=== PATIENT | male | born 1955 | race Caucasian/White ===

== ENCOUNTER 2019-10-26 13:14 | Outpatient (CLI) | payer BC ==
--- NOTE | 2019-10-26 14:33 | CT ---
CT ABDOMEN AND PELVIS WITH IV CONTRAST 10/26/2019 CLINICAL INFORMATION: Severe abdominal pain in March 2019. Splenomegaly. COMPARISON: None. Technique: Multiple contiguous axial CT images are obtained through the abdomen and pelvis with IV contrast. Cor onal reformatted images are provided. FINDINGS: Lower Chest: Lung bases are clear. Vessels: Abdominal aorta is normal in caliber. Vascular calcifications are seen in the splenic artery . Abdomen: Portal vein:Patent Gallbladder: Surgically absent. Liver: within normal limits. Spleen: There is an ill-defined subtle low-attenuation mass seen involving the superior pole and body of the spleen with greatest measurement in in axial dimensions of 8.5 cm x 6.7 cm. The margins of this mass are not well delineated. A few centimeter lower attenuation areas are seen within this subt le mass. No significant enhancement is appreciated. Calcification is seen along the superior margin of the spleen, and the mass extends to to the superior margin of the spleen. Pancreas: within normal limits. Adrenals: within normal limits. Kidneys: within normal limits. Bowel: Colonic diverticulosis. Loops of small bowel are normal in caliber. Appendix: The appendix is visualized and normal in caliber. Peritoneum: No ascites or free air; no fluid collection. Mesentery and Retroperitoneum: No enlarged mesenteric or retroperitoneal lymph nodes. Abdominal Wall: within normal limits. Pelvis: Reproductive Organs: No pelvic masses. Pelvis within normal limits. Bladder: within normal limits. Bones: Multilevel degenerative changes are seen throughout the visualized thoracic spine as well as t he lumbar spine. There is irregularity of the endplates at the L2-3 level with subchondral cystic appearing changes and vacuum phenomenon. These findings are thought to most likely be related to bonny re endplate degenerative changes as opposed to an infectious process. IMPRESSION: Subtle hypodense mass in the superior pole and body of the spleen. This could potentially represent a hamartoma. However, other etiologies including neoplastic process cannot be entirely excluded. MRI of the abdomen with and without IV contrast versus [address] abdomen is recommended for further eval uation and characterization of this mass.
== END 2019-10-26 13:15 | disposition home or self-care (01) ==
LOC: SCSCT 13:14
PROVIDERS: ATTEND Specialist
DX: R16.1 Splenomegaly, not elsewhere classified (principal)
CPT/HCPCS: 74177

== ENCOUNTER 2019-11-28 09:31 | Outpatient (CLI) | payer BC ==
--- NOTE | 2019-11-28 12:22 | MRI ---
MRI ABDOMEN WITH AND WITHOUT IV CONTRAST: Date: 11/28/2019 HISTORY: Splenic mass and splenomegaly. FINDINGS: Correlation is made with the CT scan of 10/26/2019. The spleen is mildly enlarged, measuring 14.0 cm in length. There is a complex mass in the anterior a spect of the spleen measuring 8.6 x 7.8 x 6.8 cm. This is predominantly solid with a few small cystic areas. The liver, pancreas, adrenal glands, and right kidney are normal. There is a 17.0 mm cyst in the supe rior pole of the left kidney. No free fluid or lymphadenopathy is seen. The aorta is of normal caliber. There are degenerative patterson ges in the spine. Bone marrow signal is normal. IMPRESSION: 1. Mild splenomegaly. 2. Indeterminate splenic mass. Differential diagnosis includes hamartoma, lymphangioma, and littoral cell angioma. Odds of asymptomatic angiosarcoma are exceedingly small. RECOMMENDATION: A follow-up exam is recommended in 6 months to assess for growth. POS: [facility]
== END 2019-11-28 09:32 | disposition home or self-care (01) ==
LOC: TBSIIMAG 09:31
PROVIDERS: ATTEND Specialist
DX: R16.1 Splenomegaly, not elsewhere classified (principal)
CPT/HCPCS: 74183

== ENCOUNTER 2020-07-25 11:41 | Outpatient (CLI) | payer BC ==
[2020-07-25 12:48] LABS: #Basophils 0.1 10x3/uL (0.0-0.2); #Eosinphils 0.2 10x3/uL (0.0-0.5); #Monocytes 0.6 10x3/uL (0.0-1.1); %Basophils 1.3 % (0.0-2.0); %Eosinophils 3.2 % (0.0-6.0); %Lymphocytes 21.6 % (18.0-47.0); %Monocytes 7.5 % (0.0-10.0); Hemoglobin 13.4 g/dL (13.5-17.5); Mean Corpuscular HGB CONC 32.4 g/dL (32.0-36.0); Mean Corpuscular Hemoglobin 27.9 pg (27.0-33.0); Mean Platelet Volume 9.9 fl (7.4-10.4); Platelet Count 310 10x3/uL (150-450); RBC Distribution Width 15.1 % (11.5-14.5); White Blood Cell (WBC) Count 7.6 10x3/uL (3.5-10.5)
[2020-07-25 13:07] LABS: Anion Gap 13 mmol/L (10-20); BUN (Urea Nitrogen) 24 mg/dL (8.4-25.7); Calc. Creatinine Clearance 0 mL/min (70-130); Calcium 9.2 mg/dL (7.8-10.44); Carbon Dioxide 27 mmol/L (23-31); Chloride 106 mmol/L (98-107); Glucose 109 mg/dL (80-115); Potassium 4.8 mmol/L (3.5-5.1); Sodium 141 mmol/L (136-145)
[2020-07-26 02:35] LABS: SARS-CoV-2 PCR by NAA Not Detected (NotDetected)
== END 2020-07-25 11:42 | disposition home or self-care (01) ==
LOC: LABBT 11:41
PROVIDERS: ATTEND Specialist
DX: Z01.818 Encounter for other preprocedural examination (principal); Z01.812 Encounter for preprocedural laboratory examination; R16.1 Splenomegaly, not elsewhere classified; Z20.822 Contact with and (suspected) exposure to COVID-19
CPT/HCPCS: 80048; 85025; 87635; 93005; 93010; U0003; U0005

== ENCOUNTER 2020-07-25 11:45 | Inpatient (IN) | payer BC ==
[2020-09-02 11:27] VITALS: BMI 36.2
[2020-09-03] MEDS ORDERED: Acetaminophen 500 MG TAB ONE (11:22)
[2020-09-03] MEDS ORDERED: Ketorolac Tromethamine 30 MG/ML VIAL ONE (11:22)
[2020-09-03] MEDS ORDERED: Bupivacaine 0.25% HCL 30 ML VIAL ONE (12:53)
[2020-09-03] MEDS ORDERED: Lidocaine 1% w/Epinephrine 1:100K 20 ML VIAL ONE (12:53)
[2020-09-03] MEDS ORDERED: Fentanyl 100 MCG/2 ML VIAL ONE (13:00)
[2020-09-03] MEDS ORDERED: SUGAMMADEX SODIUM 200 MG/2 ML VIAL ONE (13:01)
[2020-09-03] MEDS ORDERED: Phenylephrine 10 MG/ML VIAL ONE (13:01)
[2020-09-03] MEDS ORDERED: Famotidine/PF 20 mg/2ml Vial ONE (13:01)
[2020-09-03] MEDS ORDERED: Dexamethasone 20 MG/5 ML VIAL ONE (13:20)
[2020-09-03] MEDS ORDERED: Glycopyrrolate 0.2 MG/ML 5 ML SYRINGE ONE (13:20)
[2020-09-03] MEDS ORDERED: Lidocaine 1% PF 5 ML VIAL ONE (13:20)
[2020-09-03] MEDS ORDERED: Ondansetron PF 4 MG/2 ML Vial ONE (13:20)
[2020-09-03] MEDS ORDERED: Rocuronium Bromide 10 MG/ML (10ML VIAL) ONE (13:20)
[2020-09-03] MEDS ORDERED: PHENYLEPHRINE-NS 100 MCG/ML 10 ML SYRINGE ONE (13:20)
[2020-09-03] MEDS ORDERED: PROPOFOL 200 MG/20 ML VIAL ONE (13:20)
[2020-09-03] MEDS ORDERED: HYDROmorphone 2 MG/ML VIAL SLOW IVP PRN (14:19)
[2020-09-03] MEDS ORDERED: Promethazine HCl 25 MG/ML VIAL SLOW IVP PRN (14:19)
[2020-09-03] MEDS ORDERED: Promethazine HCl 25 MG/ML VIAL IM PRN (14:19)
[2020-09-03] MEDS ORDERED: Meperidine HCl/PF 25 MG/ML VIAL SLOW IVP PRN (14:19)
[2020-09-03] MEDS ORDERED: Meperidine HCl/PF 25 MG/ML VIAL ONE (17:16)
[2020-09-03 18:02] LABS: Hemoglobin 13.7 g/dL (14.0-18.0); Mean Corpuscular HGB CONC 32.4 g/dL (32.0-36.0); Mean Corpuscular Hemoglobin 28.3 pg (27.0-31.0); Mean Corpuscular Volume 87.2 fL (78.0-98.0); Mean Platelet Volume 7.1 fL (7.4-10.4); Platelet Count 321 thou/uL (130-400); RBC Distribution Width 14.2 % (11.5-14.5); Red Blood Cell (RBC) Count 4.85 mill/uL (4.70-6.10)
[2020-09-03 18:29] LABS: Band 21 % (5-11); Lymphocytes 3 % (21-51); MDiff Complete? YES; Monocytes 1 % (0-10); Neutrophil 74 % (42-75); Platelet Morphology Comment Appears Adequate; Polychromasia SLIGHT = 2-3 cells (100X) (0-2/hpf); Reactive Lymphocytes 1 % (0-10)
[2020-09-03] MEDS ORDERED: Morphine 4 MG/ML VIAL ONE (19:10)
[2020-09-03] MEDS ORDERED: Sodium Chloride 0.9% 10 ML ONE (19:15)
[2020-09-03] MEDS ORDERED: Dextrose 50% Abboject 50 ML SYRINGE SLOW IVP PRN (20:37)
[2020-09-03] MEDS ORDERED: Morphine 2 MG/ML VIAL SLOW IVP PRN (20:37)
[2020-09-03] MEDS ORDERED: hydrALAZINE 20 MG/ML VIAL SLOW IVP PRN (20:37)
[2020-09-03] MEDS ORDERED: Dextrose 5% in Water 1,000 ML IV PRN (20:37)
[2020-09-03] MEDS ORDERED: Ondansetron PF 4 MG/2 ML Vial IVP PRN (20:37)
[2020-09-03] MEDS: HYDROcodone/Acetaminophen 10/325 mg Tablet PO PRN (20:57)
[2020-09-03] MEDS: D5 1/2 NS w/20 mEq KCL 1,000 ML IV SCH (20:58)
[2020-09-03] MEDS: Famotidine 20 MG TAB PO SCH (20:58)
[2020-09-03] MEDS: Famotidine/PF 20 mg/2ml Vial SLOW IVP SCH (20:59)
[2020-09-03] MEDS: Morphine 4 MG/ML VIAL SLOW IVP PRN (23:46)
[2020-09-04] MEDS: HYDROcodone/Acetaminophen 10/325 mg Tablet PO PRN ×5 (02:28→22:15)
[2020-09-04] MEDS: D5 1/2 NS w/20 mEq KCL 1,000 ML IV SCH ×2 (05:30→17:00)
[2020-09-04] MEDS: Morphine 4 MG/ML VIAL SLOW IVP PRN ×2 (05:37→07:51)
[2020-09-04 06:27] LABS: #Lymphocytes 0.8 thou/uL (1.20-3.40); #Monocytes 1.1 thou/uL (0.11-0.59); #Neutrophils 12.8 thou/uL (1.40-6.50); %Basophils 0.2 % (0.0-1.0); %Lymphocytes 5.7 % (21.0-51.0); %Monocytes 7.7 % (0.0-10.0); %Neutrophils 86.4 % (42.0-75.0); Mean Corpuscular HGB CONC 32.4 g/dL (32.0-36.0); Mean Corpuscular Hemoglobin 27.9 pg (27.0-31.0); Mean Corpuscular Volume 86.3 fL (78.0-98.0); Mean Platelet Volume 7.5 fL (7.4-10.4); Platelet Count 325 thou/uL (130-400); RBC Distribution Width 14.1 % (11.5-14.5); Red Blood Cell (RBC) Count 4.65 mill/uL (4.70-6.10); White Blood Cell (WBC) Count 14.8 thou/uL (4.8-10.8)
[2020-09-04 06:46] LABS: Anion Gap 13 mmol/L (10-20); BUN (Urea Nitrogen) 17 mg/dL (8.4-25.7); Calc. Creatinine Clearance 109 mL/min (70-130); Calcium 8.7 mg/dL (7.8-10.44); Carbon Dioxide 21 mmol/L (23-31); Chloride 107 mmol/L (98-107); Glucose 144 mg/dL (80-115); Potassium 4.8 mmol/L (3.5-5.1); Sodium 136 mmol/L (136-145)
[2020-09-04] MEDS: Enoxaparin Sodium 40 MG/0.4 ML SYRINGE SC SCH (07:50)
[2020-09-04] MEDS: Famotidine 20 MG TAB PO SCH (07:51)
[2020-09-04] MEDS: Famotidine/PF 20 mg/2ml Vial SLOW IVP SCH (10:27)
[2020-09-04] MEDS ORDERED: Azelastine 137 MCG/Spray 30 ML NS PRN (16:20)
[2020-09-04] MEDS ORDERED: D5 1/2 NS w/20 mEq KCL 1,000 ML IV SCH (20:00)
[2020-09-05] MEDS: HYDROcodone/Acetaminophen 10/325 mg Tablet PO PRN ×3 (03:08→11:17)
[2020-09-05] MEDS ORDERED: Levothyroxine Sodium 25 MCG TAB PO SCH (06:00)
[2020-09-05 08:07] LABS: #Basophils 0.1 thou/uL (0.0-0.2); #Eosinphils 0.4 thou/uL (0.0-0.7); #Lymphocytes 2.5 thou/uL (1.20-3.40); #Monocytes 1.7 thou/uL (0.11-0.59); #Neutrophils 7.7 thou/uL (1.40-6.50); %Basophils 0.9 % (0.0-1.0); %Lymphocytes 20.5 % (21.0-51.0); %Monocytes 13.6 % (0.0-10.0); Mean Corpuscular HGB CONC 31.4 g/dL (32.0-36.0); Mean Corpuscular Hemoglobin 27.6 pg (27.0-31.0); Mean Platelet Volume 7.7 fL (7.4-10.4); Platelet Count 339 thou/uL (130-400); RBC Distribution Width 14.4 % (11.5-14.5); Red Blood Cell (RBC) Count 4.34 mill/uL (4.70-6.10); White Blood Cell (WBC) Count 12.3 thou/uL (4.8-10.8)
[2020-09-05] MEDS: Enoxaparin Sodium 40 MG/0.4 ML SYRINGE SC SCH (08:24)
[2020-09-05] MEDS ORDERED: Tamsulosin HCl 0.4 MG CAP PO SCH (09:00)
[2020-09-05] MEDS ORDERED: Lisinopril 20 MG TAB PO SCH (09:00)
[2020-09-05] MEDS ORDERED: Loratadine/Pseudoephedrine 10/240 mg Tablet PO SCH (09:00)
[2020-09-05] MEDS ORDERED: Atorvastatin Calcium 20 MG TAB PO SCH (09:00)
[2020-09-05 14:31] VITALS: BP 152/90; TEMP 97.4
== END 2020-09-05 13:36 | disposition home or self-care (01) | DRG 828 ==
LOC: EDSTATUS 08-13 11:45 → SURG A 09-03 10:44 → T4-B 09-03 20:38
PROVIDERS: ADMIT Specialist; ATTEND Specialist
PROC: 07BP4ZZ Excision of Spleen, Percutaneous Endoscopic Approach (ICD-10-PCS; principal; 2020-09-03)
DX: Q85.9 Phakomatosis, unspecified (principal); F41.9 Anxiety disorder, unspecified; I10 Essential (primary) hypertension; Z20.822 Contact with and (suspected) exposure to COVID-19; Z90.49 Acquired absence of other specified parts of digestive tract; Z90.89 Acquired absence of other organs
CPT/HCPCS: 36415; 80048; 82150; 85025; 86850; 86900; 86901; 88305; 88313; J0360; J0690; J1100; J1650; J1885; J2175; J2270; J2370; J2405; J2704; J3010; J3480; S0020; S0028

== ENCOUNTER 2020-08-09 12:33 | Outpatient (CLI) | payer BC ==
[2020-08-09 23:52] LABS: SARS-CoV-2 PCR by NAA Not Detected (NotDetected)
== END 2020-08-09 12:34 | disposition home or self-care (01) ==
LOC: LABBT 12:33
PROVIDERS: ATTEND Specialist
DX: Z01.818 Encounter for other preprocedural examination (principal); R94.39 Abnormal result of other cardiovascular function study; Z20.822 Contact with and (suspected) exposure to COVID-19
CPT/HCPCS: 87635; U0003; U0005

== ENCOUNTER 2020-08-13 06:08 | Day surgery (SDC) | payer BC ==
[2020-08-12 12:44] VITALS: BMI 36.2
[2020-08-13] MEDS ORDERED: Lidocaine 1% (PF) 30 ML VIAL ONE ×2 (06:38→06:41)
[2020-08-13] MEDS ORDERED: Fentanyl 100 MCG/2 ML VIAL ONE (07:26)
[2020-08-13] MEDS ORDERED: Midazolam HCl 2 mg/2 ml Vial ONE (07:27)
[2020-08-13] MEDS ORDERED: Iopamidol 370 76% 100 ML VIAL ONE (13:59)
== END 2020-08-13 13:51 | disposition home or self-care (01) ==
LOC: CCL 06:08
PROVIDERS: ATTEND Internal Medicine Cardiovascular Disease
PROC: B2111ZZ Fluoroscopy of Multiple Coronary Arteries using Low Osmolar Contrast (ICD-10-PCS; principal; 2020-08-13)
PROC: 4A023N7 Measurement of Cardiac Sampling and Pressure, Left Heart, Percutaneous Approach (ICD-10-PCS; principal; 2020-08-13)
DX: I25.10 Atherosclerotic heart disease of native coronary artery without angina pectoris (principal); I10 Essential (primary) hypertension; I49.3 Ventricular premature depolarization; Z79.899 Other long term (current) drug therapy
CPT/HCPCS: 76942; 93458; 99152; 99153; J2001; J2250; J3010; Q9967

== ENCOUNTER 2020-08-29 11:38 | Outpatient (CLI) | payer BC ==
[2020-08-29 14:36] LABS: #Basophils 0.1 10x3/uL (0.0-0.2); #Eosinphils 0.3 10x3/uL (0.0-0.5); #Monocytes 0.7 10x3/uL (0.0-1.1); %Eosinophils 3.5 % (0.0-6.0); %Lymphocytes 24.4 % (18.0-47.0); %Monocytes 8.6 % (0.0-10.0); %Neutrophils 62.1 % (40.0-75.0); Hemoglobin 12.8 g/dL (13.5-17.5); Mean Corpuscular HGB CONC 31.6 g/dL (32.0-36.0); Mean Corpuscular Hemoglobin 27.2 pg (27.0-33.0); Mean Corpuscular Volume 86.2 fl (81.2-95.1); Mean Platelet Volume 10.1 fl (7.4-10.4); Platelet Count 302 10x3/uL (150-450); RBC Distribution Width 15.4 % (11.5-14.5)
[2020-08-29 15:24] LABS: Anion Gap 16 mmol/L (10-20); BUN (Urea Nitrogen) 29 mg/dL (8.4-25.7); Calc. Creatinine Clearance 0 mL/min (70-130); Calcium 9.3 mg/dL (7.8-10.44); Carbon Dioxide 22 mmol/L (23-31); Chloride 106 mmol/L (98-107); Glucose 76 mg/dL (80-115); Sodium 139 mmol/L (136-145)
[2020-08-29 21:52] LABS: SARS-CoV-2 PCR by NAA Not Detected (NotDetected)
== END 2020-08-29 11:39 | disposition home or self-care (01) ==
LOC: LABBT 11:38
PROVIDERS: ATTEND Specialist
DX: Z01.818 Encounter for other preprocedural examination (principal); D73.89 Other diseases of spleen; Z20.822 Contact with and (suspected) exposure to COVID-19
CPT/HCPCS: 80048; 85025; 87635; 93005; 93010; U0003; U0005

== ENCOUNTER 2022-06-26 12:18 | Outpatient (CLI) | payer BC | END 2022-06-26 12:19 | disposition home or self-care (01) | LOC: SCSRAD 12:18 | PROVIDERS: ATTEND Family Medicine Sports Medicine | DX: M54.50 Low back pain, unspecified (principal); M47.816 Spondylosis without myelopathy or radiculopathy, lumbar region; M47.817 Spondylosis without myelopathy or radiculopathy, lumbosacral region | CPT/HCPCS: 72100 ==

== ENCOUNTER 2022-07-13 13:25 | Emergency (ER) | payer BC ==
[2022-07-13 14:02] LABS: Bilirubin Negative (Negative); Blood, Urine Negative (Negative); Clarity Clear (Clear); Glucose, Urine (Dipstick) Normal (Negative); Ketone, Urine Negative (Negative); Leukocyte Negative Leu/uL (Negative); Nitrite Negative (Negative); Protein, Urine (Dipstick) 10 mg/dL (Neg-Trace); Specific Gravity, Urine 1.028 (1.002-1.036); Urobilinogen Normal mg/dL (Less than 2); pH, Urine 6.5 (5.0-9.0)
[2022-07-13 14:44] LABS: #Basophils 0.2 thou/uL (0.0-0.2); #Eosinphils 0.6 thou/uL (0.0-0.7); #Lymphocytes 3.5 thou/uL (1.20-3.40); #Monocytes 1.2 thou/uL (0.11-0.59); #Neutrophils 6.6 thou/uL (1.40-6.50); %Basophils 1.4 % (0.0-1.0); %Eosinophils 4.7 % (0.0-10.0); %Lymphocytes 29.1 % (21.0-51.0); %Monocytes 10.3 % (0.0-10.0); %Neutrophils 54.6 % (42.0-75.0); Hemoglobin 14.4 g/dL (14.0-18.0); Mean Corpuscular HGB CONC 34.2 g/dL (32.0-36.0); Mean Corpuscular Hemoglobin 31.1 pg (27.0-31.0); Mean Corpuscular Volume 90.8 fl (78.0-98.0); Platelet Count 524 10x3/uL (130-400); RBC Distribution Width 13.1 % (11.5-14.5); Red Blood Cell (RBC) Count 4.63 mill/uL (4.70-6.10)
[2022-07-13 15:05] LABS: ALT (SGPT) 25 U/L (8-55); AST (SGOT) 29 U/L (5-34); Albumin 4.2 g/dL (3.4-4.8); Alkaline Phosphatase 126 U/L (40-110); Anion Gap 17 mmol/L (10-20); BUN (Urea Nitrogen) 21 mg/dL (8.4-25.7); Bilirubin, Total 0.5 mg/dL (0.2-1.2); Calc. Creatinine Clearance 0 mL/min (70-130); Calcium 9.3 mg/dL (7.8-10.44); Carbon Dioxide 21 mmol/L (23-31); Chloride 105 mmol/L (98-107); Estimated GFR 70; Globulin 3.7 g/dL (2.4-3.5); Glucose 97 mg/dL (80-115); Potassium 4.6 mmol/L (3.5-5.1); Protein, Total 7.9 g/dL (5.8-8.1); Sodium 138 mmol/L (136-145)
[2022-07-13] MEDS ORDERED: Ketorolac Tromethamine 30 MG/ML VIAL ONE (15:51)
== END 2022-07-13 16:41 | disposition home or self-care (01) ==
LOC: ERS 13:25
DX: M47.816 Spondylosis without myelopathy or radiculopathy, lumbar region (principal); D72.829 Elevated white blood cell count, unspecified; I10 Essential (primary) hypertension; R79.89 Other specified abnormal findings of blood chemistry; Z79.899 Other long term (current) drug therapy
CPT/HCPCS: 36415; 74176; 80053; 81003; 85025; 96374; J1885

== ENCOUNTER 2023-04-06 14:21 | Outpatient (CLI) | payer BC | END 2023-04-06 14:22 | disposition home or self-care (01) | LOC: SCSMRI 14:21 | PROVIDERS: ATTEND Family Medicine Sports Medicine | DX: M54.41 Lumbago with sciatica, right side (principal); M47.816 Spondylosis without myelopathy or radiculopathy, lumbar region; M48.061 Spinal stenosis, lumbar region without neurogenic claudication; M48.07 Spinal stenosis, lumbosacral region | CPT/HCPCS: 72148 ==

== ENCOUNTER 2023-05-28 18:11 | Inpatient (IN) | payer BC, MEDICARE ==
[2023-05-28] MEDS ORDERED: Ondansetron PF 4 MG/2 ML Vial IVP PRN ×2 (23:53→23:55)
[2023-05-28] MEDS ORDERED: Acetaminophen 325 MG TAB PO PRN (23:53)
[2023-05-28] MEDS ORDERED: Ondansetron ODT 4 MG TAB PO PRN (23:55)
[2023-05-28] MEDS ORDERED: Acetaminophen 650 MG Suppository PR PRN (23:55)
[2023-05-29] MEDS ORDERED: NOREPINEPHRINE 8 MG/250 ML-D5W 250 ML IVPB SCH (00:15)
[2023-05-29] MEDS ORDERED: Vancomycin 1 GM in Premix 1 BAG IVPB SCH (00:45)
[2023-05-29] MEDS: Lactated Ringer's 1,000 ML IV SCH ×4 (00:51→18:53)
[2023-05-29] MEDS: Cefepime 1 GM in Sodium Chloride 0.9% 100 ML IVPB SCH ×2 (02:02→13:04)
[2023-05-29 04:19] LABS: #Basophils 0.1 thou/uL (0.0-0.2); #Eosinphils 0.1 thou/uL (0.0-0.7); #Neutrophils 19.3 thou/uL (1.40-6.50); %Basophils 0.3 % (0.0-1.0); %Eosinophils 0.4 % (0.0-10.0); %Lymphocytes 8.4 % (21.0-51.0); %Monocytes 8.4 % (0.0-10.0); %Neutrophils 81.6 % (42.0-75.0); Hematocrit 31.8 % (42.0-52.0); Hemoglobin 10.6 g/dL (14.0-18.0); Mean Corpuscular HGB CONC 33.3 g/dL (32.0-36.0); Mean Corpuscular Hemoglobin 29.9 pg (27.0-31.0); Mean Corpuscular Volume 89.6 fl (78.0-98.0); Mean Platelet Volume 10.3 fL (7.4-10.4); Platelet Count 323 10x3/uL (130-400); RBC Distribution Width 18.6 % (11.5-14.5); Red Blood Cell (RBC) Count 3.55 mill/uL (4.70-6.10); White Blood Cell (WBC) Count 23.7 10x3/uL (4.8-10.8)
[2023-05-29] MEDS: Acetaminophen 325 MG TAB PO PRN ×2 (05:39→15:37)
[2023-05-29] MEDS: Heparin 5,000 UNITS/ML VIAL SC SCH ×2 (08:14→20:39)
[2023-05-29 08:37] LABS: ALT (SGPT) 31 U/L (8-55); AST (SGOT) 33 U/L (5-34); Albumin 3.2 g/dL (3.4-4.8); Alkaline Phosphatase 98 U/L (40-110); Anion Gap 14 mmol/L (10-20); BUN (Urea Nitrogen) 30 mg/dL (8.4-25.7); Bilirubin, Total 0.6 mg/dL (0.2-1.2); Calc. Creatinine Clearance 89 mL/min (70-130); Calcium 8.2 mg/dL (7.8-10.44); Carbon Dioxide 21 mmol/L (23-31); Chloride 105 mmol/L (98-107); Estimated GFR 50; Globulin 2.5 g/dL (2.4-3.5); Glucose 155 mg/dL (80-115); Potassium 4.7 mmol/L (3.5-5.1); Protein, Total 5.7 g/dL (5.8-8.1); Sodium 135 mmol/L (136-145)
[2023-05-29] MEDS ORDERED: Gabapentin 300 MG CAP PO SCH ×2 (09:00→13:00)
[2023-05-29] MEDS ORDERED: Enoxaparin 40 MG (0.4 mL) SYRINGE SC SCH (09:00)
[2023-05-29] MEDS ORDERED: Loperamide HCl 2 MG CAP PO SCH (20:15)
[2023-05-29] MEDS: Gabapentin 300 MG CAP PO SCH (20:37)
[2023-05-29] MEDS: clonazePAM 0.5 MG TAB PO SCH (21:27)
[2023-05-30] MEDS: Vancomycin (BATCH) 1.5 GM in Premix 1 BAG IVPB SCH (00:38)
[2023-05-30] MEDS: Acetaminophen 325 MG TAB PO PRN ×2 (00:40→21:32)
[2023-05-30] MEDS: Cefepime 1 GM in Sodium Chloride 0.9% 100 ML IVPB SCH (02:48)
[2023-05-30] MEDS: Lactated Ringer's 1,000 ML IV SCH ×2 (02:49→21:33)
[2023-05-30 07:25] LABS: Hematocrit 31.2 % (42.0-52.0); Hemoglobin 10.3 g/dL (14.0-18.0); Manual Diff?? YES; Mean Corpuscular Hemoglobin 29.9 pg (27.0-31.0); Mean Corpuscular Volume 90.7 fl (78.0-98.0); Mean Platelet Volume 9.9 fL (7.4-10.4); Platelet Count 275 10x3/uL (130-400); Red Blood Cell (RBC) Count 3.44 mill/uL (4.70-6.10); White Blood Cell (WBC) Count 13.5 10x3/uL (4.8-10.8)
[2023-05-30 07:44] LABS: Delete Auto Diff?? YES
[2023-05-30 07:54] LABS: Anion Gap 11 mmol/L (10-20); BUN (Urea Nitrogen) 16 mg/dL (8.4-25.7); Calc. Creatinine Clearance 123 mL/min (70-130); Calcium 8.5 mg/dL (7.8-10.44); Carbon Dioxide 24 mmol/L (23-31); Chloride 105 mmol/L (98-107); Estimated GFR 74; Glucose 136 mg/dL (80-115); Potassium 4.4 mmol/L (3.5-5.1); Sodium 136 mmol/L (136-145)
[2023-05-30 09:08] LABS: Anisocytosis SLIGHT = 6-15 cells HPF (0-5); Burr Cells SLIGHT = 2-5 cells HPF (0-1); CellaVision Operator ID LAB.NR; Hypochromia SLIGHT = 6-15 cells HPF (0-5); Lymphocytes 9 % (21-51); Macrocytosis SLIGHT = 6-15 cells HPF (0-5); Monocytes 13 % (0-10); Neutrophil 78 % (42-75); Platelet Adequacy Comment Platelets Normal; Polychromasia SLIGHT = 2-3 cells HPF (0-2); Total Cell Count 101
[2023-05-30] MEDS: clonazePAM 0.5 MG TAB PO SCH (21:32)
[2023-05-30] MEDS: Heparin 5,000 UNITS/ML VIAL SC SCH ×2 (21:33→22:34)
[2023-05-30] MEDS: Gabapentin 300 MG CAP PO SCH ×2 (22:33→22:34)
[2023-05-30] MEDS: Cefepime 2 GM in Sodium Chloride 0.9% 100 ML IVPB SCH (22:34)
[2023-05-31 00:39] LABS: Vancomycin, Trough 5.7 ug/mL
[2023-05-31] MEDS: Vancomycin (BATCH) 1.25 GM in Premix 1 BAG IVPB SCH ×2 (00:56→13:45)
[2023-05-31] MEDS: traMADol HCl 50 MG TAB PO PRN ×4 (00:57→22:36)
[2023-05-31] MEDS: Metoprolol Tartrate 5 MG (5 mL) VIAL IVP SCH ×2 (00:57→02:21)
[2023-05-31 01:02] LABS: Magnesium 1.8 mg/dL (1.6-2.6)
[2023-05-31] MEDS ORDERED: Magnesium 2 GM/50 ML(in water) 2 GM in Premix 1 BAG IVPB SCH (02:00)
[2023-05-31] MEDS ORDERED: Enoxaparin 100 MG (1 mL) SYRINGE SC SCH (02:15)
[2023-05-31] MEDS ORDERED: Enoxaparin 30 MG (0.3 mL) SYRINGE SC SCH (02:15)
[2023-05-31] MEDS: Metoprolol Tartrate 5 MG (5 mL) VIAL IVP PRN ×2 (02:21→22:12)
[2023-05-31] MEDS: Cefepime 2 GM in Sodium Chloride 0.9% 100 ML IVPB SCH ×2 (03:46→16:13)
[2023-05-31] MEDS ORDERED: dilTIAZem 125 MG in Sodium Chloride 0.9% 100 ML IVPB SCH (04:00)
[2023-05-31] MEDS ORDERED: Sodium Chloride 0.9% 500 ML IV SCH (04:30)
[2023-05-31 04:49] LABS: #Basophils 0.1 thou/uL (0.0-0.2); #Eosinphils 0.2 thou/uL (0.0-0.7); #Monocytes 1.6 thou/uL (0.11-0.59); #Neutrophils 6.6 thou/uL (1.40-6.50); %Basophils 0.7 % (0.0-1.0); %Eosinophils 2.2 % (0.0-10.0); %Lymphocytes 20.1 % (21.0-51.0); %Monocytes 14.5 % (0.0-10.0); %Neutrophils 61.8 % (42.0-75.0); Hematocrit 32.2 % (42.0-52.0); Hemoglobin 10.5 g/dL (14.0-18.0); Mean Corpuscular HGB CONC 32.6 g/dL (32.0-36.0); Mean Corpuscular Hemoglobin 28.8 pg (27.0-31.0); Mean Corpuscular Volume 88.5 fl (78.0-98.0); Mean Platelet Volume 10.8 fL (7.4-10.4); Platelet Count 299 10x3/uL (130-400); RBC Distribution Width 18.9 % (11.5-14.5); Red Blood Cell (RBC) Count 3.64 mill/uL (4.70-6.10); White Blood Cell (WBC) Count 10.7 10x3/uL (4.8-10.8)
[2023-05-31 05:04] LABS: Anion Gap 10 mmol/L (10-20); BUN (Urea Nitrogen) 16 mg/dL (8.4-25.7); Calc. Creatinine Clearance 145 mL/min (70-130); Carbon Dioxide 21 mmol/L (23-31); Chloride 105 mmol/L (98-107); Estimated GFR 90; Glucose 156 mg/dL (80-115); Potassium 3.9 mmol/L (3.5-5.1); Sodium 132 mmol/L (136-145)
[2023-05-31] MEDS: Lactated Ringer's 1,000 ML IV SCH (07:00)
[2023-05-31] MEDS: Vancomycin (BATCH) 1.5 GM in Premix 1 BAG IVPB SCH (07:38)
[2023-05-31] MEDS: Heparin 5,000 UNITS/ML VIAL SC SCH (07:39)
[2023-05-31] MEDS ORDERED: Flecainide 50 MG TAB PO SCH (09:30)
[2023-05-31] MEDS ORDERED: Gabapentin 300 MG CAP PO SCH (09:45)
[2023-05-31] MEDS: Gabapentin 300 MG CAP PO SCH ×3 (13:45→20:31)
[2023-05-31] MEDS ORDERED: Communication Order-Pharmacy FS ONE (17:00)
[2023-05-31 18:33] LABS: Hematocrit 30.6 % (42.0-52.0); Hemoglobin 10.3 g/dL (14.0-18.0); Platelet Count 325 10x3/uL (130-400)
[2023-05-31] MEDS: Enoxaparin 100 MG (1 mL) SYRINGE SC SCH (20:32)
[2023-05-31] MEDS: Enoxaparin 30 MG (0.3 mL) SYRINGE SC SCH (20:32)
[2023-05-31] MEDS: Flecainide 50 MG TAB PO SCH (20:33)
[2023-05-31] MEDS: clonazePAM 0.5 MG TAB PO SCH (22:12)
[2023-06-01] MEDS: Vancomycin (BATCH) 1.25 GM in Premix 1 BAG IVPB SCH ×2 (01:21→17:43)
[2023-06-01] MEDS: Lactated Ringer's 1,000 ML IV SCH ×2 (01:29→12:21)
[2023-06-01] MEDS: traMADol HCl 50 MG TAB PO PRN ×4 (05:02→22:45)
[2023-06-01 06:19] LABS: #Basophils 0.1 thou/uL (0.0-0.2); #Eosinphils 0.4 thou/uL (0.0-0.7); #Neutrophils 5.8 thou/uL (1.40-6.50); %Eosinophils 3.3 % (0.0-10.0); %Lymphocytes 27.3 % (21.0-51.0); %Monocytes 17.3 % (0.0-10.0); %Neutrophils 50.1 % (42.0-75.0); Hematocrit 30.6 % (42.0-52.0); Hemoglobin 10.1 g/dL (14.0-18.0); Mean Corpuscular Hemoglobin 29.7 pg (27.0-31.0); Platelet Count 347 10x3/uL (130-400); RBC Distribution Width 19.1 % (11.5-14.5); White Blood Cell (WBC) Count 11.5 10x3/uL (4.8-10.8)
[2023-06-01 06:46] LABS: Anion Gap 13 mmol/L (10-20); BUN (Urea Nitrogen) 14 mg/dL (8.4-25.7); Calc. Creatinine Clearance 155 mL/min (70-130); Calcium 8.3 mg/dL (7.8-10.44); Carbon Dioxide 22 mmol/L (23-31); Chloride 104 mmol/L (98-107); Estimated GFR 95; Glucose 138 mg/dL (80-115); Potassium 4.4 mmol/L (3.5-5.1); Sodium 135 mmol/L (136-145)
[2023-06-01] MEDS ORDERED: FLU VACC QS2023(65UP)/MF59C/PF 60 MCG/0.5 ML SYRINGE IM ONE (09:00)
[2023-06-01] MEDS: Acetaminophen 325 MG TAB PO PRN (09:02)
[2023-06-01] MEDS: Flecainide 50 MG TAB PO SCH (09:02)
[2023-06-01] MEDS: Gabapentin 300 MG CAP PO SCH ×3 (09:02→20:48)
[2023-06-01] MEDS: Enoxaparin 100 MG (1 mL) SYRINGE SC SCH ×2 (09:03→20:48)
[2023-06-01] MEDS: Enoxaparin 30 MG (0.3 mL) SYRINGE SC SCH ×2 (09:03→20:47)
[2023-06-01] MEDS ORDERED: dilTIAZem 25 MG/5 ML VIAL SLOW IVP SCH (11:30)
[2023-06-01] MEDS: dilTIAZem 125 MG in Sodium Chloride 0.9% 100 ML IVPB SCH ×2 (12:41→21:40)
[2023-06-01] MEDS ORDERED: Levothyroxine Sodium 25 MCG TAB PO SCH (13:00)
[2023-06-01] MEDS: Amiodarone 200 MG TAB PO SCH ×2 (14:48→20:48)
[2023-06-01] MEDS: clonazePAM 0.5 MG TAB PO SCH (20:48)
[2023-06-02] MEDS: Vancomycin (BATCH) 1.25 GM in Premix 1 BAG IVPB SCH ×2 (01:35→12:43)
[2023-06-02] MEDS: traMADol HCl 50 MG TAB PO PRN ×3 (04:45→19:35)
[2023-06-02 05:57] LABS: #Basophils 0.1 thou/uL (0.0-0.2); #Eosinphils 0.4 thou/uL (0.0-0.7); #Monocytes 1.5 thou/uL (0.11-0.59); #Neutrophils 6.7 thou/uL (1.40-6.50); %Basophils 1.1 % (0.0-1.0); %Eosinophils 3.6 % (0.0-10.0); %Lymphocytes 24.1 % (21.0-51.0); %Monocytes 12.4 % (0.0-10.0); %Neutrophils 56.7 % (42.0-75.0); Hematocrit 32.3 % (42.0-52.0); Hemoglobin 10.5 g/dL (14.0-18.0); Mean Corpuscular HGB CONC 32.5 g/dL (32.0-36.0); Mean Corpuscular Hemoglobin 29.7 pg (27.0-31.0); Mean Corpuscular Volume 91.2 fl (78.0-98.0); Mean Platelet Volume 11.1 fL (7.4-10.4); Platelet Count 398 10x3/uL (130-400); RBC Distribution Width 19.1 % (11.5-14.5); Red Blood Cell (RBC) Count 3.54 mill/uL (4.70-6.10); White Blood Cell (WBC) Count 11.8 10x3/uL (4.8-10.8)
[2023-06-02 06:23] LABS: Anion Gap 12 mmol/L (10-20); BUN (Urea Nitrogen) 13 mg/dL (8.4-25.7); Calc. Creatinine Clearance 152 mL/min (70-130); Calcium 8.4 mg/dL (7.8-10.44); Carbon Dioxide 23 mmol/L (23-31); Chloride 105 mmol/L (98-107); Estimated GFR 94; Glucose 173 mg/dL (80-115); Potassium 4.3 mmol/L (3.5-5.1); Sodium 136 mmol/L (136-145)
[2023-06-02] MEDS: Amiodarone 200 MG TAB PO SCH ×3 (08:25→19:36)
[2023-06-02] MEDS: Enoxaparin 30 MG (0.3 mL) SYRINGE SC SCH (08:25)
[2023-06-02] MEDS: Levothyroxine Sodium 25 MCG TAB PO SCH (08:25)
[2023-06-02] MEDS: Enoxaparin 100 MG (1 mL) SYRINGE SC SCH (08:25)
[2023-06-02] MEDS: Gabapentin 300 MG CAP PO SCH ×3 (08:25→19:34)
[2023-06-02] MEDS ORDERED: Amiodarone 200 MG TAB PO SCH (10:18)
[2023-06-02] MEDS: dilTIAZem 125 MG in Sodium Chloride 0.9% 100 ML IVPB SCH ×2 (12:06→20:31)
[2023-06-02] MEDS: Acetaminophen 325 MG TAB PO PRN (15:25)
[2023-06-02] MEDS: Apixaban 5 MG TAB PO SCH (19:35)
[2023-06-02] MEDS: clonazePAM 0.5 MG TAB PO SCH (19:36)
[2023-06-03] MEDS: Vancomycin (BATCH) 1.25 GM in Premix 1 BAG IVPB SCH ×2 (01:28→13:36)
[2023-06-03 04:40] LABS: Hematocrit 31.1 % (42.0-52.0); Hemoglobin 9.9 g/dL (14.0-18.0); Manual Diff?? YES; Mean Corpuscular HGB CONC 31.8 g/dL (32.0-36.0); Mean Corpuscular Hemoglobin 29.1 pg (27.0-31.0); Mean Corpuscular Volume 91.5 fl (78.0-98.0); Mean Platelet Volume 10.7 fL (7.4-10.4); Platelet Count 447 10x3/uL (130-400); RBC Distribution Width 19.4 % (11.5-14.5); White Blood Cell (WBC) Count 12.7 10x3/uL (4.8-10.8)
[2023-06-03 05:00] LABS: Delete Auto Diff?? YES
[2023-06-03 05:05] LABS: Anion Gap 13 mmol/L (10-20); BUN (Urea Nitrogen) 13 mg/dL (8.4-25.7); Calc. Creatinine Clearance 155 mL/min (70-130); Calcium 8.5 mg/dL (7.8-10.44); Carbon Dioxide 22 mmol/L (23-31); Chloride 107 mmol/L (98-107); Estimated GFR 95; Glucose 112 mg/dL (80-115); Potassium 4.1 mmol/L (3.5-5.1); Sodium 138 mmol/L (136-145)
[2023-06-03 05:26] LABS: Band 2 % (5-11); CellaVision Operator ID LAB.CLH1; Eosinophils 5 % (0-10); Hypochromia SLIGHT = 6-15 cells HPF (0-5); Large Platelets 8.5 % (0-5); Lymphocytes 24 % (21-51); Macrocytosis SLIGHT = 6-15 cells HPF (0-5); Monocytes 20 % (0-10); Neutrophil 42 % (42-75); Nucleated RBC (Manual Ct) 7 % (0); Platelet Adequacy Comment Platelets Normal; Polychromasia SLIGHT = 2-3 cells HPF (0-2); Reactive Lymphocytes 4 % (0-10); Target Cells SLIGHT = 2-5 cells HPF (0-1); Total Cell Count 117
[2023-06-03] MEDS: traMADol HCl 50 MG TAB PO PRN ×3 (08:37→19:19)
[2023-06-03] MEDS: Amiodarone 200 MG TAB PO SCH ×3 (08:37→21:11)
[2023-06-03] MEDS: Apixaban 5 MG TAB PO SCH ×2 (08:39→21:13)
[2023-06-03] MEDS: Lisinopril 20 MG TAB PO SCH (08:39)
[2023-06-03] MEDS: Gabapentin 300 MG CAP PO SCH ×3 (08:40→21:06)
[2023-06-03] MEDS: Levothyroxine Sodium 25 MCG TAB PO SCH (08:40)
[2023-06-03 09:17] LABS: Magnesium 2.2 mg/dL (1.6-2.6)
[2023-06-03 12:08] LABS: Vancomycin, Trough 16.6 ug/mL
[2023-06-03] MEDS: clonazePAM 0.5 MG TAB PO SCH (21:10)
[2023-06-04] MEDS: Vancomycin (BATCH) 1.25 GM in Premix 1 BAG IVPB SCH ×2 (00:55→12:29)
[2023-06-04] MEDS: traMADol HCl 50 MG TAB PO PRN ×3 (00:55→18:44)
[2023-06-04 04:41] LABS: Hematocrit 29.2 % (42.0-52.0); Hemoglobin 9.6 g/dL (14.0-18.0); Manual Diff?? YES; Mean Corpuscular HGB CONC 32.9 g/dL (32.0-36.0); Mean Corpuscular Hemoglobin 29.5 pg (27.0-31.0); Mean Corpuscular Volume 89.8 fl (78.0-98.0); Mean Platelet Volume 9.7 fL (7.4-10.4); Platelet Count 519 10x3/uL (130-400); RBC Distribution Width 18.7 % (11.5-14.5); Red Blood Cell (RBC) Count 3.25 mill/uL (4.70-6.10); White Blood Cell (WBC) Count 12.6 10x3/uL (4.8-10.8)
[2023-06-04 05:04] LABS: Delete Auto Diff?? YES
[2023-06-04 05:12] LABS: Anion Gap 13 mmol/L (10-20); BUN (Urea Nitrogen) 12 mg/dL (8.4-25.7); Calc. Creatinine Clearance 150 mL/min (70-130); Calcium 8.4 mg/dL (7.8-10.44); Carbon Dioxide 21 mmol/L (23-31); Chloride 107 mmol/L (98-107); Estimated GFR 94; Glucose 110 mg/dL (80-115); Magnesium 1.9 mg/dL (1.6-2.6); Sodium 137 mmol/L (136-145)
[2023-06-04 06:51] LABS: Anisocytosis SLIGHT = 6-15 cells HPF (0-5); Band 1 % (5-11); CellaVision Operator ID LAB.JMM; Eosinophils 6 % (0-10); Hypochromia SLIGHT = 6-15 cells HPF (0-5); Large Platelets 11.7 % (0-5); Lymphocytes 20 % (21-51); Macrocytosis SLIGHT = 6-15 cells HPF (0-5); Monocytes 6 % (0-10); Neutrophil 67 % (42-75); Nucleated RBC (Manual Ct) 16 % (0); Platelet Adequacy Comment Platelets Normal; Polychromasia SLIGHT = 2-3 cells HPF (0-2); Smudge Cells 11.7 %; Target Cells SLIGHT = 2-5 cells HPF (0-1); Total Cell Count 103
[2023-06-04] MEDS: Amiodarone 200 MG TAB PO SCH ×2 (08:24→20:15)
[2023-06-04] MEDS: Levothyroxine Sodium 25 MCG TAB PO SCH (08:25)
[2023-06-04] MEDS: Lisinopril 20 MG TAB PO SCH (08:25)
[2023-06-04] MEDS: Apixaban 5 MG TAB PO SCH ×2 (08:25→20:15)
[2023-06-04] MEDS: Gabapentin 300 MG CAP PO SCH ×3 (08:25→20:14)
[2023-06-04] MEDS: Acetaminophen 325 MG TAB PO PRN (10:58)
[2023-06-04 12:53] LABS: INR-International Normal Ratio 1.2; Prothrombin Time 14.9 sec (12.0-14.7)
[2023-06-04] MEDS ORDERED: Sodium Bicarbonate 0.5 MEQ/ML SDV 10 ML ONE (14:10)
[2023-06-04] MEDS ORDERED: Lidocaine 1% PF 5 ML VIAL ONE (14:10)
[2023-06-04] MEDS: clonazePAM 0.5 MG TAB PO SCH (20:15)
[2023-06-05] MEDS: Vancomycin (BATCH) 1.25 GM in Premix 1 BAG IVPB SCH ×2 (00:34→13:51)
[2023-06-05 04:47] LABS: Hematocrit 32.1 % (42.0-52.0); Hemoglobin 10.5 g/dL (14.0-18.0); Manual Diff?? YES; Mean Corpuscular HGB CONC 32.7 g/dL (32.0-36.0); Mean Corpuscular Hemoglobin 29.6 pg (27.0-31.0); Mean Corpuscular Volume 90.4 fl (78.0-98.0); Mean Platelet Volume 9.9 fL (7.4-10.4); Platelet Count 586 10x3/uL (130-400); RBC Distribution Width 19.3 % (11.5-14.5); Red Blood Cell (RBC) Count 3.55 mill/uL (4.70-6.10); White Blood Cell (WBC) Count 11.4 10x3/uL (4.8-10.8)
[2023-06-05 05:06] LABS: Delete Auto Diff?? YES
[2023-06-05 05:16] LABS: Anion Gap 12 mmol/L (10-20); BUN (Urea Nitrogen) 14 mg/dL (8.4-25.7); Calc. Creatinine Clearance 132 mL/min (70-130); Calcium 8.7 mg/dL (7.8-10.44); Carbon Dioxide 25 mmol/L (23-31); Chloride 106 mmol/L (98-107); Estimated GFR 81; Glucose 131 mg/dL (80-115); Potassium 4.1 mmol/L (3.5-5.1); Sodium 139 mmol/L (136-145)
[2023-06-05 05:41] LABS: CellaVision Operator ID lab.abc; Metamyelocyte 1 % (0-0); Platelet Adequacy Comment Platelets Increased; Reactive Lymphocytes 1 % (0-10); Target Cells SLIGHT = 2-5 cells HPF (0-1)
[2023-06-05 06:29] LABS: Anisocytosis SLIGHT = 6-15 cells HPF (0-5); Band 2 % (5-11); Eosinophils 6 % (0-10); Large Platelets 9.8 % (0-5); Lymphocytes 20 % (21-51); Monocytes 10 % (0-10); Myelocyte 1 % (0-0); Neutrophil 61 % (42-75); Nucleated RBC (Manual Ct) 16 % (0); Polychromasia SLIGHT = 2-3 cells HPF (0-2); Smudge Cells 6.9 %; Total Cell Count 102
[2023-06-05] MEDS: Apixaban 5 MG TAB PO SCH ×2 (08:37→20:51)
[2023-06-05] MEDS: Amiodarone 200 MG TAB PO SCH ×2 (08:37→20:51)
[2023-06-05] MEDS: Gabapentin 300 MG CAP PO SCH ×3 (08:37→20:49)
[2023-06-05] MEDS: Lisinopril 20 MG TAB PO SCH (08:38)
[2023-06-05] MEDS: Levothyroxine Sodium 25 MCG TAB PO SCH (08:38)
[2023-06-05] MEDS: traMADol HCl 50 MG TAB PO PRN ×2 (08:38→17:52)
[2023-06-05] MEDS: clonazePAM 0.5 MG TAB PO SCH (20:50)
[2023-06-06] MEDS: traMADol HCl 50 MG TAB PO PRN ×3 (00:20→13:21)
[2023-06-06] MEDS: Vancomycin (BATCH) 1.25 GM in Premix 1 BAG IVPB SCH (00:21)
[2023-06-06 04:45] LABS: Hematocrit 31.1 % (42.0-52.0); Hemoglobin 10.1 g/dL (14.0-18.0); Manual Diff?? YES; Mean Corpuscular HGB CONC 32.5 g/dL (32.0-36.0); Mean Corpuscular Hemoglobin 29.4 pg (27.0-31.0); Mean Corpuscular Volume 90.4 fl (78.0-98.0); Mean Platelet Volume 9.7 fL (7.4-10.4); Platelet Count 650 10x3/uL (130-400); RBC Distribution Width 18.8 % (11.5-14.5); Red Blood Cell (RBC) Count 3.44 mill/uL (4.70-6.10); White Blood Cell (WBC) Count 10.8 10x3/uL (4.8-10.8)
[2023-06-06 05:12] LABS: Anion Gap 14 mmol/L (10-20); BUN (Urea Nitrogen) 14 mg/dL (8.4-25.7); Calc. Creatinine Clearance 135 mL/min (70-130); Calcium 9.1 mg/dL (7.8-10.44); Carbon Dioxide 25 mmol/L (23-31); Chloride 105 mmol/L (98-107); Estimated GFR 82; Glucose 167 mg/dL (80-115); Potassium 4.3 mmol/L (3.5-5.1); Sodium 140 mmol/L (136-145)
[2023-06-06 06:02] LABS: Delete Auto Diff?? YES
[2023-06-06 07:08] LABS: Anisocytosis MODERATE=16-30 cells HPF (0-5); Band 2 % (5-11); CellaVision Operator ID LAB.JMM; Eosinophils 12 % (0-10); Large Platelets 16.7 % (0-5); Lymphocytes 16 % (21-51); Macrocytosis SLIGHT = 6-15 cells HPF (0-5); Monocytes 12 % (0-10); Neutrophil 55 % (42-75); Nucleated RBC (Manual Ct) 10 % (0); Platelet Adequacy Comment Platelets Normal; Polychromasia SLIGHT = 2-3 cells HPF (0-2); Reactive Lymphocytes 2 % (0-10); Smudge Cells 23.5 %; Target Cells SLIGHT = 2-5 cells HPF (0-1); Total Cell Count 102
[2023-06-06] MEDS: Gabapentin 300 MG CAP PO SCH ×3 (08:17→20:56)
[2023-06-06] MEDS: Levothyroxine Sodium 25 MCG TAB PO SCH (08:19)
[2023-06-06] MEDS: Lisinopril 20 MG TAB PO SCH (09:05)
[2023-06-06] MEDS: Apixaban 5 MG TAB PO SCH ×2 (09:06→20:57)
[2023-06-06] MEDS: Amiodarone 200 MG TAB PO SCH ×2 (09:06→20:57)
[2023-06-06 13:52] LABS: Vancomycin, Trough 18.3 ug/mL
[2023-06-06] MEDS: Vancomycin 1 GM in Premix 1 BAG IVPB SCH (16:17)
[2023-06-06] MEDS: clonazePAM 0.5 MG TAB PO SCH (20:57)
[2023-06-07] MEDS: Vancomycin 1 GM in Premix 1 BAG IVPB SCH ×2 (03:37→15:20)
[2023-06-07 04:13] LABS: Hematocrit 32.1 % (42.0-52.0); Hemoglobin 10.3 g/dL (14.0-18.0); Manual Diff?? YES; Mean Corpuscular HGB CONC 32.1 g/dL (32.0-36.0); Mean Corpuscular Hemoglobin 28.9 pg (27.0-31.0); Mean Corpuscular Volume 90.2 fl (78.0-98.0); Mean Platelet Volume 9.4 fL (7.4-10.4); Platelet Count 596 10x3/uL (130-400); RBC Distribution Width 18.6 % (11.5-14.5); Red Blood Cell (RBC) Count 3.56 mill/uL (4.70-6.10); White Blood Cell (WBC) Count 9.7 10x3/uL (4.8-10.8)
[2023-06-07 04:39] LABS: Anion Gap 14 mmol/L (10-20); BUN (Urea Nitrogen) 14 mg/dL (8.4-25.7); Calc. Creatinine Clearance 134 mL/min (70-130); Calcium 8.7 mg/dL (7.8-10.44); Carbon Dioxide 25 mmol/L (23-31); Chloride 105 mmol/L (98-107); Estimated GFR 82; Glucose 125 mg/dL (80-115); Potassium 4.4 mmol/L (3.5-5.1); Sodium 140 mmol/L (136-145)
[2023-06-07 04:45] LABS: Delete Auto Diff?? YES
[2023-06-07 05:56] LABS: CellaVision Operator ID lab.abc; Eosinophils 13 % (0-10); Lymphocytes 15 % (21-51); Monocytes 10 % (0-10); Neutrophil 61 % (42-75); Nucleated RBC (Manual Ct) 5 % (0); Platelet Adequacy Comment Platelets Increased; Polychromasia SLIGHT = 2-3 cells HPF (0-2); Total Cell Count 100
[2023-06-07] MEDS: Vancomycin (BATCH) 1.25 GM in Premix 1 BAG IVPB SCH (07:35)
[2023-06-07] MEDS: Gabapentin 300 MG CAP PO SCH ×3 (08:47→21:30)
[2023-06-07] MEDS: Amiodarone 200 MG TAB PO SCH ×2 (08:48→21:30)
[2023-06-07] MEDS: Apixaban 5 MG TAB PO SCH ×2 (08:48→21:30)
[2023-06-07] MEDS: Levothyroxine Sodium 25 MCG TAB PO SCH (08:48)
[2023-06-07] MEDS: Lisinopril 20 MG TAB PO SCH (08:49)
[2023-06-07] MEDS: traMADol HCl 50 MG TAB PO PRN ×2 (08:52→21:32)
[2023-06-07 13:55] VITALS: BMI 40.8
[2023-06-07] MEDS: clonazePAM 0.5 MG TAB PO SCH (21:30)
[2023-06-07] MEDS ORDERED: Bisacodyl 5 MG TAB PO PRN (21:33)
[2023-06-07] MEDS ORDERED: Bisacodyl 5 MG TAB PO SCH (21:45)
[2023-06-08] MEDS: Vancomycin 1 GM in Premix 1 BAG IVPB SCH ×2 (03:21→15:27)
[2023-06-08] MEDS: Gabapentin 300 MG CAP PO SCH ×3 (09:08→20:27)
[2023-06-08] MEDS: Apixaban 5 MG TAB PO SCH ×2 (09:08→20:27)
[2023-06-08] MEDS: Levothyroxine Sodium 25 MCG TAB PO SCH (09:08)
[2023-06-08] MEDS: Amiodarone 200 MG TAB PO SCH ×2 (09:08→20:27)
[2023-06-08] MEDS: Lisinopril 20 MG TAB PO SCH (09:09)
[2023-06-08 14:45] LABS: Vancomycin, Trough 16.6 ug/mL
[2023-06-08] MEDS: traMADol HCl 50 MG TAB PO PRN (16:37)
[2023-06-08] MEDS: clonazePAM 0.5 MG TAB PO SCH (20:26)
[2023-06-09] MEDS: Vancomycin 1 GM in Premix 1 BAG IVPB SCH ×2 (04:29→14:57)
[2023-06-09] MEDS: Amiodarone 200 MG TAB PO SCH (09:42)
[2023-06-09] MEDS: Lisinopril 20 MG TAB PO SCH (09:42)
[2023-06-09] MEDS: Gabapentin 300 MG CAP PO SCH ×2 (09:42→12:40)
[2023-06-09] MEDS: Levothyroxine Sodium 25 MCG TAB PO SCH (09:42)
[2023-06-09] MEDS: Apixaban 5 MG TAB PO SCH (09:43)
[2023-06-09] MEDS: traMADol HCl 50 MG TAB PO PRN (10:27)
[2023-06-09 12:29] VITALS: BP 139/78; TEMP 98.3
== END 2023-06-09 16:40 | disposition home or self-care (01) | DRG 871 ==
LOC: CCU 18:11 → 2NO 05-30 04:36
PROVIDERS: ADMIT Internal Medicine; ATTEND Family Medicine
DX: A41.02 Sepsis due to Methicillin resistant Staphylococcus aureus (principal); R65.21 Severe sepsis with septic shock; N39.0 Urinary tract infection, site not specified; N17.9 Acute kidney failure, unspecified; I48.91 Unspecified atrial fibrillation; I35.0 Nonrheumatic aortic (valve) stenosis; E03.9 Hypothyroidism, unspecified; I10 Essential (primary) hypertension; E66.01 Morbid (severe) obesity due to excess calories; M47.816 Spondylosis without myelopathy or radiculopathy, lumbar region; E87.5 Hyperkalemia; Z79.899 Other long term (current) drug therapy
CPT/HCPCS: 36415; 36416; 36556; 36569; 51702; 71045; 71275; 72148; 74177; 80048; 80053; 80202; 81001; 83605; 83690; 83735; 84443; 84484; 85025; 85610; 86140; 87040; 87077; 87086; 87149; 87186; 93005; 93010; 93306; 96374; 96375; J0692; J0696; J1644; J1650; J3370; J3370-JW; J3475; J3490; J7030; J7120; Q9967

== ENCOUNTER 2023-11-11 09:02 | Outpatient (CLI) | payer BC ==
[2023-11-11 10:22] LABS: Hematocrit 42.4 % (38.8-50.0); Mean Corpuscular Hemoglobin 28.6 pg (27.0-33.0); Mean Corpuscular Volume 86.7 fL (81.2-95.1); Platelet Count 468 10x3/uL (150-450); RBC Distribution Width 18.3 % (11.5-14.5); Red Blood Cell (RBC) Count 4.89 10x6/uL (4.32-5.72); White Blood Cell (WBC) Count 10.3 10x3/uL (3.5-10.5)
[2023-11-11 10:45] LABS: INR-International Normal Ratio 0.9; PTT 28.5 sec (22.0-33.0); Prothrombin Time 10.3 sec (9.5-12.1)
== END 2023-11-11 09:03 | disposition home or self-care (01) ==
LOC: LABBT 09:02
PROVIDERS: ATTEND Neurological Surgery
DX: Z01.812 Encounter for preprocedural laboratory examination (principal); G95.9 Disease of spinal cord, unspecified
CPT/HCPCS: 85027; 85610; 85730

== ENCOUNTER 2023-11-18 05:29 | Inpatient (IN) | payer BC, MEDICARE ==
[2023-11-11 09:26] VITALS: BMI 40.4
[2023-11-18] MEDS ORDERED: EPINEPHrine 1 MG/ML VIAL ONE (06:11)
[2023-11-18] MEDS ORDERED: Bupivacaine PF 0.5% 30 ML VIAL ONE (06:11)
[2023-11-18] MEDS ORDERED: Thrombin 5000 UNITS/5 ML VIAL ONE (06:11)
[2023-11-18] MEDS ORDERED: Milk Of Magnesia 30 ML UDCUP PO PRN (06:12)
[2023-11-18] MEDS ORDERED: Bisacodyl 10 MG SUPP PR PRN (06:12)
[2023-11-18] MEDS ORDERED: Prochlorperazine 10 MG/2 ML VIAL IM PRN (06:12)
[2023-11-18] MEDS ORDERED: Acetaminophen 325 MG TAB PO PRN (06:12)
[2023-11-18] MEDS ORDERED: Acetaminophen/Codeine 30-300mg Tablet PO PRN (06:12)
[2023-11-18] MEDS ORDERED: Ondansetron PF 4 MG/2 ML Vial IVP PRN (06:12)
[2023-11-18] MEDS ORDERED: Morphine 2 MG/ML VIAL SLOW IVP PRN (06:12)
[2023-11-18] MEDS ORDERED: diphenhydrAMINE 50 MG/ML VIAL IVP PRN (06:12)
[2023-11-18] MEDS ORDERED: Vancomycin 1 GM VIAL ONE (06:13)
[2023-11-18] MEDS ORDERED: tiZANidine HCl 4 MG TAB PO PRN (06:14)
[2023-11-18] MEDS ORDERED: Vancomycin 1 GM/200 ML (FROZEN) BAG ONE (06:45)
[2023-11-18] MEDS ORDERED: Dexamethasone 20 MG/5 ML VIAL ONE (06:50)
[2023-11-18] MEDS ORDERED: PHENYLEPHRINE-NS 100 MCG/ML 10 ML SYRINGE ONE (06:50)
[2023-11-18] MEDS ORDERED: SUGAMMADEX SODIUM 200 MG/2 ML VIAL ONE (06:50)
[2023-11-18] MEDS ORDERED: Glycopyrrolate 0.2 MG/ML 5 ML SYRINGE ONE (06:50)
[2023-11-18] MEDS ORDERED: Ondansetron PF 4 MG/2 ML Vial ONE (06:50)
[2023-11-18] MEDS ORDERED: Rocuronium Bromide 10 MG/ML (10ML VIAL) ONE ×2 (06:50→08:34)
[2023-11-18] MEDS ORDERED: PROPOFOL 20 ML ONE (06:50)
[2023-11-18] MEDS ORDERED: Lidocaine 1% PF 5 ML VIAL ONE (06:50)
[2023-11-18] MEDS ORDERED: fentaNYL PF 100 MCG/2 ML SYRINGE ONE (06:50)
[2023-11-18] MEDS ORDERED: HYDROmorphone 2 MG/ML VIAL ONE (07:37)
[2023-11-18] MEDS ORDERED: ePHEDrine Sulfate 50 MG/10 ML VIAL ONE (08:19)
[2023-11-18] MEDS ORDERED: fentaNYL 50 mcg/mL 1 mL Vial ONE ×3 (11:01→12:26)
[2023-11-18] MEDS ORDERED: Vancomycin 1 GM in Premix 1 BAG IVPB SCH ×2 (15:00→23:00)
[2023-11-18] MEDS: Cholecalciferol 1,000 UNITS (25 MCG) TAB PO SCH (15:31)
[2023-11-18] MEDS: Sodium Chloride 0.9% 1,000 ML IV SCH (15:32)
[2023-11-18] MEDS: Levothyroxine Sodium 25 MCG TAB PO SCH (15:32)
[2023-11-18] MEDS: Gabapentin 300 MG CAP PO SCH (15:32)
[2023-11-18] MEDS: Lisinopril 20 MG TAB PO SCH (15:33)
[2023-11-18] MEDS: Rosuvastatin 20 MG TAB PO SCH (15:34)
[2023-11-18] MEDS: Pantoprazole DR 40 MG TAB PO SCH (15:34)
[2023-11-18] MEDS: Vancomycin (BATCH) 1.5 GM in Premix 1 BAG IVPB SCH (16:36)
[2023-11-18] MEDS: Vancomycin 1 GM in Premix 1 BAG IVPB SCH (17:49)
[2023-11-18] MEDS: Mag-Al 1200 mg/1200 mg/30 ML UDCUP PO PRN (22:51)
[2023-11-18] MEDS: HYDROcodone/Acetaminophen 10/325 mg Tablet PO PRN (22:52)
[2023-11-19] MEDS: Vancomycin 1 GM in Premix 1 BAG IVPB SCH (00:49)
[2023-11-19] MEDS: Levothyroxine Sodium 25 MCG TAB PO SCH (05:58)
[2023-11-19 12:49] VITALS: TEMP 98.6
[2023-11-19] MEDS: HYDROcodone/Acetaminophen 7.5/325 mg Tablet PO PRN (13:05)
[2023-11-19 16:50] VITALS: BP 145/82
== END 2023-11-19 17:26 | disposition home or self-care (01) | DRG 519 ==
LOC: SDC 05:29 → SURG B 13:37
PROVIDERS: ADMIT Neurological Surgery; ATTEND Neurological Surgery
PROC: 00NX0ZZ Release Thoracic Spinal Cord, Open Approach (ICD-10-PCS; principal; 2023-11-18)
DX: M48.04 Spinal stenosis, thoracic region (principal); M51.04 Intervertebral disc disorders with myelopathy, thoracic region; I10 Essential (primary) hypertension; G89.29 Other chronic pain; Z98.890 Other specified postprocedural states; Z79.890 Hormone replacement therapy; Z79.899 Other long term (current) drug therapy
CPT/HCPCS: 36415; 80202; 82565; J0171; J0665; J1100; J1170; J2405; J2704; J3010; J3370; J3370-JW

== ENCOUNTER 2024-07-04 09:58 | Outpatient (CLI) | payer BC ==
[2024-07-04 11:28] LABS: #Basophils 0.17 10x3/uL (0.0-0.2); %Basophils 1.6 % (0.0-1.0); %Eosinophils 4.3 % (0.0-10.0); %Lymphocytes 30.7 % (21.0-51.0); %Monocytes 10.4 % (0.0-10.0); %Neutrophils 52.7 % (42.0-75.0); Hematocrit 39.9 % (42.0-52.0); Hemoglobin 12.6 g/dL (14.0-18.0); Mean Corpuscular HGB CONC 31.6 g/dL (32.0-36.0); Mean Corpuscular Hemoglobin 27.2 pg (27.0-31.0); Mean Corpuscular Volume 86.2 fL (78.0-98.0); Mean Platelet Volume 10.3 fL (7.4-10.4); Platelet Count 526 10x3/uL (130-400); RBC Distribution Width 17.4 % (11.5-14.5); Red Blood Cell (RBC) Count 4.63 mill/uL (4.70-6.10)
[2024-07-04 11:43] LABS: Prothrombin Time 12.8 sec (12.0-14.7)
[2024-07-04 11:44] LABS: PTT 32.6 sec (22.9-36.1)
[2024-07-04 11:45] LABS: Anion Gap 13 mmol/L (10-20); BUN (Urea Nitrogen) 30 mg/dL (8.4-25.7); Calc. Creatinine Clearance 0 mL/min (70-130); Calcium 9.6 mg/dL (7.8-10.44); Carbon Dioxide 24 mmol/L (23-31); Chloride 109 mmol/L (98-107); Estimated GFR 53; Glucose 93 mg/dL (80-115); Potassium 4.9 mmol/L (3.5-5.1); Sodium 141 mmol/L (136-145)
== END 2024-07-04 09:59 | disposition home or self-care (01) ==
LOC: LABBT 09:58
PROVIDERS: ATTEND Neurological Surgery
DX: Z01.818 Encounter for other preprocedural examination (principal); M48.062 Spinal stenosis, lumbar region with neurogenic claudication
CPT/HCPCS: 80048; 85025; 85610; 85730; 93005; 93010